=== PATIENT | female | born 2000 | race Caucasian/White ===

== ENCOUNTER 2021-03-17 20:33 | Inpatient (IN) ==
[2021-03-17] MEDS ORDERED: BUTORPHANOL 2 MG/ML VIAL IV PRN (21:04)
[2021-03-17] MEDS ORDERED: ONDANSETRON 4 MG/2 ML VIAL IV PRN (21:04)
[2021-03-17 21:27] LABS: Basophils % 0.2 % (0.0-0.8); Eosinophils % 0.4 % (0.00-10.9); Hematocrit 35.5 VOL% (35.7-47.0); Hemoglobin 11.4 GM/DL (12.0-16.0); Immature Granulocytes % 0.4 %; Immature Granulocytes Absolute 0.05 #; Lymphocytes # 2.3 10*3/uL (1.4-4.0); Lymphocytes % 20.3 % (21.3-54.2); Mean Corpuscular HGB Conc 32.1 GM/DL (32-36); Mean Corpuscular Volume 84.5 FL (87-102); Mean Platelet Volume 10.2 FL (9.6-12.0); Monocytes % 8.6 % (1.7-12.7); Neutrophils % 70.1 % (38.7-73.9); Platelet Count 282 T/CUMM (130-400); Red Cell Distribution Width 14.1 % (9.3-17.3); White Blood Count 11.2 T/CUMM (4-12)
[2021-03-17 21:45] LABS: Alanine Aminotransferase 13 U/L (13-56); Albumin 2.8 G/DL (3.4-5.0); Alkaline Phosphatase 140 U/L (45-117); Aspartate Amino Transferase 14 U/L (0-37); Bilirubin,Total < 0.39 MG/DL (0.20-1.00); Blood Urea Nitrogen 7 MG/DL (7-18); Calcium 8.6 MG/DL (8.5-10.1); Carbon Dioxide 22 MMOL/L (21-32); Estimated Glom Filtration Rate 139 ML/MIN; Glucose 55 MG/DL (74-106); Osmolality,Calculated 278.1 MOS/KG (273-304); Potassium 3.7 MMOL/L (3.5-5.1); Sodium 142 MMOL/L (136-145)
[2021-03-18] MEDS ORDERED: CITRIC ACID/SODIUM CITRATE 30 ML UDCUP ONE (02:34)
[2021-03-18] MEDS ORDERED: FAMOTIDINE 20 MG/2 ML VIAL IV ONE ×2 (02:34→02:43)
[2021-03-18] MEDS ORDERED: PROMETHAZINE 25 MG/1 ML VIAL IM ONE (02:36)
[2021-03-18] MEDS ORDERED: CITRIC ACID/SODIUM CITRATE 30 ML UDCUP PO ONE (02:36)
[2021-03-18] MEDS ORDERED: LACTATED RINGERS 1,000 ML IV ONE (02:36)
[2021-03-18] MEDS ORDERED: hydrOXYzine HCL 25 MG/1 ML VIAL IM PRN (02:36)
[2021-03-18] MEDS ORDERED: diphenhydrAMINE 50 MG/1 ML VIAL IV PRN ×2 (02:36)
[2021-03-18] MEDS ORDERED: NALOXONE 0.4 MG/ML VIAL IV PRN (02:36)
[2021-03-18] MEDS ORDERED: LACTATED RINGERS 1,000 ML IV SCH (03:00)
[2021-03-18] MEDS: fentaNYL 2 MCG/ROPIV 0.2% EPID 100 ML EPIDURAL SCH ×2 (03:37→11:35)
[2021-03-18] MEDS: ePHEDrine 50 MG/ML VIAL IV PRN ×2 (03:44→05:53)
[2021-03-18] MEDS: LACTATED RINGERS 1,000 ML IV SCH ×2 (04:01→11:36)
[2021-03-18 04:52] LABS: Bilirubin,Urine Negative (Negative); Blood, Urine Negative (Negative); Glucose,Urine (UA) Negative (Negative); Ketones,Urine 5 mg/dL (Negative); Mucus,Urine Occasional /LPF (Occasional); Nitrite,Urine Negative (Negative); Protein,Urine Negative; RBC,Urine 2 /HPF (0-4); Squamous Epithelial Cell,Urine Occasional /HPF (0-10); Urine Appearance CLEAR (Clear); Urine Color Yellow (Yellow); Urine Specific Gravity 1.019 (1.001-1.035); Urine Urobilinogen < 2.0 EU/DL (0.2-1.0)
[2021-03-18] MEDS ORDERED: OXYTOCIN/LR 20 UNIT/1,000 ML BAG IV SCH (07:30)
[2021-03-18] MEDS ORDERED: TRANEXAMIC ACID 1,000 MG/10 ML VIAL ONE (12:35)
[2021-03-18] MEDS ORDERED: miSOPROStoL 200 MCG TABLET ONE (12:35)
[2021-03-18] MEDS ORDERED: CARBOPROST TROMETHAMINE 250 MCG/ML AMP IM ONE (12:36)
[2021-03-18] MEDS ORDERED: METHYLERGONOVINE 0.2 MG/1 ML AMP ONE (12:36)
[2021-03-18] MEDS ORDERED: SODIUM CHLORIDE 0.9% 100 ML IV ONE (12:37)
[2021-03-18] MEDS ORDERED: fentaNYL 100 MCG/2 ML VIAL ONE (14:21)
[2021-03-18] MEDS ORDERED: DINOPROSTONE 10 MG VAG.INSERT VAG ONE (14:47)
[2021-03-18] MEDS ORDERED: LIDOCAINE 1% 50 ML VIAL ONE (15:16)
[2021-03-18 15:37] LABS: Cord Arterial Blood HCO3 24.1 MMOL/L
[2021-03-18 15:42] LABS: Cord Venous Blood HCO3 21.6 MMOL/L; Cord Venous Blood PCO2 41.4 MMHG; Cord Venous Blood PO2 28.1 MMHG
[2021-03-18] MEDS ORDERED: IBUPROFEN 800 MG TABLET PO ONE (17:01)
[2021-03-18] MEDS ORDERED: OXYTOCIN/LR 20 UNIT/1,000 ML BAG IV ONE (17:01)
[2021-03-18] MEDS ORDERED: WITCH HAZEL PADS 100/JAR TOP PRN (18:01)
[2021-03-18] MEDS ORDERED: ACETAMINOPHEN 325 MG TABLET PO PRN (18:01)
[2021-03-18] MEDS ORDERED: DIPH/TET/ACEL PERT BOOSTER VACCINE 0.5 ML VIAL IM ONE (18:01)
[2021-03-18] MEDS ORDERED: LANOLIN 50% CREAM 0.3 OZ TUBE TOP PRN (18:01)
[2021-03-18] MEDS ORDERED: BISACODYL 10 MG SUPP RECTAL PRN (18:01)
[2021-03-18] MEDS ORDERED: HYDROCORTISONE 2.5% RECTAL CREAM 30 GM TUBE TOP PRN (18:01)
[2021-03-18] MEDS ORDERED: BENZOCAINE 20%/MENTHOL 0.5% SPRAY 56 GM CAN TOP PRN (18:01)
[2021-03-18] MEDS ORDERED: RHO(D) IMMUNE GLOBULIN 300 MCG SYRINGE IM ONE (18:01)
[2021-03-18] MEDS ORDERED: MEASLES/MUMPS/RUBELLA VACCINE 0.5 ML VIAL SUBCUT ONE (18:01)
[2021-03-18] MEDS ORDERED: oxyCODONE/ACETAMINOPHEN 5-325 MG TABLET PO PRN (18:01)
[2021-03-18] MEDS: oxyCODONE/ACETAMINOPHEN 5-325 MG TABLET PO PRN (18:22)
[2021-03-18] MEDS: DOCUSATE SODIUM 100 MG CAPSULE PO SCH (21:34)
[2021-03-19] MEDS: oxyCODONE/ACETAMINOPHEN 5-325 MG TABLET PO PRN (04:20)
[2021-03-19 06:52] LABS: Basophils % 0.1 % (0.0-0.8); Eosinophils % 0.1 % (0.00-10.9); Hematocrit 30.9 VOL% (35.7-47.0); Hemoglobin 9.9 GM/DL (12.0-16.0); Immature Granulocytes % 0.5 %; Immature Granulocytes Absolute 0.07 #; Lymphocytes # 1.6 10*3/uL (1.4-4.0); Lymphocytes % 11.8 % (21.3-54.2); Mean Corpuscular Volume 84.2 FL (87-102); Mean Platelet Volume 10.6 FL (9.6-12.0); Monocytes % 5.9 % (1.7-12.7); Neutrophils % 81.6 % (38.7-73.9); Platelet Count 213 T/CUMM (130-400); Red Blood Count 3.67 MC/CUMM (3.8-5.5); Red Cell Distribution Width 14.1 % (9.3-17.3); White Blood Count 13.7 T/CUMM (4-12)
[2021-03-19] MEDS: IBUPROFEN 800 MG TABLET PO PRN ×2 (09:20→19:24)
[2021-03-19] MEDS: DOCUSATE SODIUM 100 MG CAPSULE PO SCH ×2 (09:20→21:42)
[2021-03-19] MEDS ORDERED: SIMETHICONE CHEW 80 MG TABLET PO PRN (19:05)
[2021-03-20] MEDS: DOCUSATE SODIUM 100 MG CAPSULE PO SCH (08:46)
[2021-03-20 12:21] VITALS: BP 134/72
== END 2021-03-20 11:40 | disposition home or self-care (01) | DRG 560 ==
LOC: N.LDOUT 20:33 → N.LD 20:38 → N.OB 03-18 17:50
PROVIDERS: ADMIT Specialist; ATTEND Specialist